=== PATIENT | male | born 1950 | race Caucasian/White ===

== ENCOUNTER 2018-12-08 14:34 | Inpatient (IN) | payer MEDICARE, OTHER ==
[~2018-12-08] VITALS: Ht 180.3 cm; Wt 111.4 kg
[2019-02-07] VITALS (11 sets, daily range): BP systolic 96–130; BP diastolic 53–74; PULSE 55–77; TEMP 98.2–98.5
[2019-02-07] MEDS ORDERED: CLARITIN 1010 MG/TAB PO (03:55)
[2019-02-07] MEDS ORDERED: ASPIRIN E.C. 8181 MG PO (03:55)
[2019-02-07] MEDS ORDERED: FLOMAX 0.40.4 MG/CAP PO (03:56)
[2019-02-07] MEDS ORDERED: PROZAC 20MG20 MG PO (03:56)
[2019-02-07] MEDS ORDERED: LIPITOR20 MG PO (03:56)
[2019-02-07] MEDS ORDERED: MOTRIN 200200 MG/TAB PO (03:57)
[2019-02-07] MEDS ORDERED: MULTI VITAMINS1 TAB PO (03:58)
[2019-02-07] MEDS ORDERED: TYLENOL 325MG325 MG PO (05:18)
[2019-02-07] MEDS ORDERED: FOLIC ACID0.4 MG PO (06:23)
--- NOTE | 2019-02-07 06:35 | NUR ---
Pt. preop complete. IV started to lt. hand. Scrub to rt. knee complete. Pt. denies needs, Evan to take pt. to OR.
--- NOTE | 2019-02-07 09:50 | NUR ---
PATIENT ADMITED INTO ROOM 327 POST OP RTK. ORIENTED BUT DROWSY. VSS. DENIES PAIN. PATIENT IS UNABLE TO MOVE BLE. RTK DRESSING IS CD&I WITH AQUACEL. TEDS & SCD'S TO BLE. NO NORIEGA, PACU BLADDER SCAN OF 194CC. PATIENT DENIES NEED TO VOID. IV FLUIDS INFUSING VIA PUMP INTO RIGHT HAND. NO C/O N/V. LIQUIDS AT BEDSIDE. HEAD TO TOE ASSESSMENT WNL. AT BEDSIDE. ORIENTED TO ROOM. CALL LIGHT IN REACH.
--- NOTE | 2019-02-07 11:30 | NUR ---
CRISTOFER met with the patient and the patient's , Elizabeth (ph#[phone]), to discuss discharge plan. The patient lives in [place] with his . He reports independence with ADLs and has a walker. The patient's PCP is Dr. Maynor Harvey and he receives his medications at [facility]. He reports no difficulties obtaining his meds. The patient does not have advanced directives in EMR, but he states that he does have them completed. He states that his is his DPOA-HC. The patient plans to return home with his and receive outpatient PT at [facility] upon discharge. No additional needs at this time.
--- NOTE | 2019-02-07 19:30 | NUR ---
Report received. Assumed care for corporation pilot. A&Ox3. Assessment complete-see flow sheet. Denies nausea/shortness of breath. C/O pain to right knee described as throbbing-rating 6/10 on pain scale. Roxicodone 10mg given per dr order. Fresh ice pack applied to knee. Bulky white/omar CDI. Plan of care discussed for ambulation this shift. WIll ambulate after pain meds start to work. SCDs bilat. IV to right hand-fluids infusing per order. No redness/swelling noted. Denies needs. Family at bedside. Encouraged to call for questions or concerns. Verbalizes understanding. Call light in reach. Bed in low/wheels locked. Will monitor.
--- NOTE | 2019-02-07 20:30 | NUR ---
Up out of bed at this time to ambulate with standby assist x2/gait belt. Ambulated approx 200 feet. Tolerated well without nausea/shortness of breath/dizziness. Denies needs. Will monitor.
--- NOTE | 2019-02-07 20:45 | NUR ---
Called to nurses station with increase in pain level since ambulating. Rating pain 8/10-described as constant throb. Morphine 2mg given IV per dr order for breakthrough pain. Ice pack on. Dressing remains C/D/I. Will monitor
[2019-02-08] VITALS: BP 137/61; PULSE 74; TEMP 98
--- NOTE | 2019-02-08 | NUR ---
Called to nurses station with C/O pain to right knee. Rating pain 6/10-described as throbbing. Roxicodone given per dr order. Fresh ice pack applied to right knee. Tolerating PO. Denies nausea. Voiding without difficulty. Will monitor.
[2019-02-08 03:46] VITALS: BP 121/61; PULSE 65; TEMP 97.9
--- NOTE | 2019-02-08 04:36 | NUR ---
Has rested off and on this shift. Pain controlled with roxicodone. Denies nausea/shortness of breath. Fresh ice packs applied to right knee. INTd-tolerating PO. SCDs bilat. Bulky white dressing/omar has remained C/D/I. Denies needs. Encouraged to call for questions or concerns. Verbalizes understanding. Bed in low/wheels locked/call light in reach. Will monitor.
[2019-02-08 07:24] LABS: HEMATOCRIT 39.9 % (42.0-52.0)
--- NOTE | 2019-02-08 07:30 | NUR ---
DR.MCATEE STARR.
[2019-02-08 07:58] VITALS: BP 130/76; PULSE 81; TEMP 97.9
--- NOTE | 2019-02-08 08:00 | NUR ---
PATIENT IS A&O AND UP IN BATHROOM WITH 1 ASSIST AND WALKER THIS AM. PATIENT REPORT NO BM YET, VOIDING SUFFICENT AMOUNTS. PATIENT NOW UP IN BEDSIDE CHAIR WITH RLE ELEVATED AND CRYOCUFF INPLACE. PATIENT C/O PAIN IN RLE AT 6/10. GAVE PRN ROXICODONE, TWO TABS. BULKY DRESSING TO RLE IS CD&I. POSITIVE PEDAL PULSES TO BLE. HEAD TO TWO ASSESSMENT WNL. VSS. AM MEDS GIVEN. PATIENT ATE BREAKFAST WELL. NO C/O N/V. RIGHT HAND IV TO INT. NO OTHER NEEDS AT THIS TIME. CALL LIGHT IN REACH.
--- NOTE | 2019-02-08 08:30 | NUR ---
RADIOLOGY AT BEDSIDE TO OBTAIN CXR.
[2019-02-08 12:46] VITALS: BP 133/47; PULSE 84; TEMP 98.5
[2019-02-08 15:40] VITALS: BP 118/59; PULSE 74; TEMP 97.5
--- NOTE | 2019-02-08 16:22 | NUR ---
The patient's RN informed CRISTOFER that the patient will need a larger walker. CRISTOFER then met with the patient. The patient states that the walker he has, was just borrowed from a friend. The patient was interested in getting a new walker. CRISTOFER presented and explained the Patient Choice Form for DME. The patient chose [facility]. CRISTOFER contacted Randell at [facility]. Randell reports that they do have a walker the patient's size. CRISTOFER has left the walker script on the patient's chart for the doctor to sign and informed the patient's RN of this. CRISTOFER will need to fax the order to [facility] tomorrow, 02/09. . CRISTOFER to continue to follow.
[2019-02-08 20:00] VITALS: BP 133/55; PULSE 82; TEMP 97.9
[2019-02-08] MEDS ORDERED: ASPI325T6 PO (20:50)
[2019-02-08] MEDS ORDERED: TYLENOL 500MG500 MG PO (20:51)
[2019-02-08] MEDS ORDERED: ROXICODONE 55 MG/TAB PO (20:51)
[2019-02-09] VITALS: BP 129/53; PULSE 78; TEMP 98.2
[2019-02-09 04:00] VITALS: BP 120/65; PULSE 70; TEMP 98.3
--- NOTE | 2019-02-09 04:14 | NUR ---
Patient rested well throughout the night. Ambulates to the restroom with 1 assist from staff. No drainage to aquacell to right knee. Cryocuff present. Denies any further needs. Will continue to monitor.
--- NOTE | 2019-02-09 06:50 | NUR ---
awake sitting up in bed eating breakfast, bedside shift report received from JANE Ann
[2019-02-09 06:54] LABS: HEMATOCRIT 40.7 % (42.0-52.0)
--- NOTE | 2019-02-09 07:30 | NUR ---
resting in bed after having had breakfast, full assessment completed, see interventions for further info, given miralax per patient's request
[2019-02-09 08:00] VITALS: BP 113/58; PULSE 69; TEMP 98.2
--- NOTE | 2019-02-09 08:20 | NUR ---
occupational therapy in to assist him with taking a shower
--- NOTE | 2019-02-09 10:29 | NUR ---
Patient indisposed, spoke with his and offered God's blessings. She thanked [employer] for looking in on them and will mention [employer]'s visit to [facility].
--- NOTE | 2019-02-09 10:29 | NUR ---
The patient is to discharge back home with his today, 02/09, with outpatient PT at [facility]. The patient and his decided on a rolaider over a FWW. SW contacted and faxed the rolaider order to Christian at [facility] in [place]. 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 No additional needs at this time.
--- NOTE | 2019-02-09 11:10 | NUR ---
ready for discharge, discharge instructions given to patient and his , verbalizes understanding
--- NOTE | 2019-02-09 11:22 | NUR ---
medicated with roxicodone 5mg for c/os pain 06/04 and in anticipation of ride home, discharged per WC
== END 2019-02-09 11:22 | disposition home or self-care (01) | DRG 470 ==
LOC: JCC 02-07 05:30
PROVIDERS: Physician Assistant; ADMIT Orthopaedic Surgery
PROC: 0SRC0J9 Replacement of Right Knee Joint with Synthetic Substitute, Cemented, Open Approach (ICD-10-PCS; principal; 2019-02-07 07:30)
DX: M17.11 Unilateral primary osteoarthritis, right knee (principal); N40.0 Benign prostatic hyperplasia without lower urinary tract symptoms; G47.33 Obstructive sleep apnea (adult) (pediatric); F32.9 Major depressive disorder, single episode, unspecified
CPT/HCPCS: A9284; C1776; J0690; J2250; J2270; J2704; J7120; J7121